=== PATIENT | female | born 1935 | race Caucasian/White ===

== ENCOUNTER 2024-11-25 15:46 | Inpatient (IN) ==
[2024-11-25 16:21] LABS: Basophils # (Auto) 0.03 K/mcL (0.00-0.30); Basophils % (Auto) 0.2 % (0.0-2.0); Eosinophils # (Auto) 0.04 K/mcL (0.00-0.70); Eosinophils % (Auto) 0.3 % (0.0-7.0); Hematocrit 41.8 % (34.1-44.9); Hemoglobin 13.3 g/dL (11.2-15.7); Lymphocytes # (Auto) 1.05 K/mcL (1.50-4.80); Lymphocytes % (Auto) 7.7 % (15.5-49.0); Mean Corpuscular HGB Conc 31.8 g/dL (31.0-36.0); Monocytes # (Auto) 0.68 K/mcL (0.10-0.90); Monocytes % (Auto) 5.0 % (1.0-12.0); Neutrophils % (Auto) 86.5 % (38.0-78.0); Platelet Count 186 K/mcL (140-440); RBC 4.46 M/mcL (3.59-5.38); WBC 13.6 K/mcL (4.5-11.0)
[2024-11-25] MEDS ORDERED: PROPOFOL 200 MG/20 ML VIAL IV ONE (16:39)
[2024-11-25] MEDS ORDERED: ONDANSETRON 4 MG/2 ML VIAL ONE (16:40)
[2024-11-25] MEDS ORDERED: LIDOCAINE 2% PF 5 ML VIAL ONE (16:40)
[2024-11-25] MEDS ORDERED: DEXAMETHASONE 10 MG/ML VIAL ONE (16:40)
[2024-11-25 16:43] LABS: ALT/SGPT 13 U/L (<40); AST/SGOT 22 U/L (<32); Albumin 4.1 gm/dL (3.2-5.2); Albumin/Globulin Ratio 1.6 (1.0-2.3); Alkaline Phosphatase 70 U/L (39-117); Anion Gap 12.0 (8.0-16.0); Bilirubin,Total 0.3 mg/dL (0.1-1.0); Blood Urea Nitrogen 20 mg/dL (8-23); Calcium 9.6 mg/dL (8.6-10.4); Carbon Dioxide 24 mmol/L (22-30); Chloride 101 mmol/L (96-108); Globulin 2.6 gm/dL (2.2-3.7); Glucose 120 mg/dL (70-105); Potassium 3.7 mmol/L (3.3-5.1); Sodium 137 mmol/L (133-145)
[2024-11-25 16:45] LABS: INR 1.0 (0.9-1.1); Prothrombin Time 14.4 sec (11.9-14.5)
[2024-11-25] MEDS ORDERED: TRANEXAMIC ACID 1,000 MG/10 ML VIAL ONE (17:17)
[2024-11-25] MEDS ORDERED: IPRATROPIUM/ALBUTEROL 3 ML AMPUL.NEB NEB PRN (17:58)
[2024-11-25] MEDS ORDERED: LACTATED RINGERS 250 ML IV PRN (17:58)
[2024-11-25] MEDS ORDERED: fentaNYL 100 MCG/2 ML VIAL IV PRN (17:58)
[2024-11-25] MEDS ORDERED: ONDANSETRON 4 MG/2 ML VIAL IV PRN ×2 (17:58→19:52)
[2024-11-25] MEDS ORDERED: NALOXONE HCL 0.4 MG/ML VIAL IV PRN ×2 (17:58→19:52)
[2024-11-25] MEDS ORDERED: diphenhydrAMINE 50 MG/ML VIAL IV PRN (17:58)
[2024-11-25] MEDS ORDERED: MEPERIDINE 25 MG/ML VIAL IV PRN (17:58)
[2024-11-25] MEDS ORDERED: FLEETS ADULT 1 DOSE ENEMA PR PRN (18:27)
[2024-11-25] MEDS ORDERED: MAGNESIUM HYDROXIDE 30 ML ORAL.SUSP PO PRN (18:27)
[2024-11-25] MEDS ORDERED: BENZOCAINE/MENTHOL 1 LOZENGE PO PRN (18:27)
[2024-11-25] MEDS ORDERED: BISACODYL 10 MG SUPP.RECT PR PRN (18:27)
[2024-11-25] MEDS ORDERED: POLYETHYLENE GLYCOL 3350 17 GM PACKET PO PRN (18:27)
[2024-11-25] MEDS: ACETAMINOPHEN 1,000 MG/100 ML BAG IV ONE (18:31)
[2024-11-25] MEDS: METHOCARBAMOL 1,000 MG/10 ML VIAL IV PRN (18:36)
[2024-11-25] MEDS: TRANEXAMIC ACID 1,000 MG/10 ML VIAL IV ONE (19:11)
[2024-11-25] MEDS: LACTATED RINGERS 1,000 ML IV SCH (19:12)
[2024-11-25] MEDS: ONDANSETRON 4 MG/2 ML VIAL IV PRN (19:12)
[2024-11-25] MEDS: ONDANSETRON 4 MG/2 ML VIAL ONE (19:22)
[2024-11-25] MEDS: TRANEXAMIC ACID 1,000 MG/10 ML VIAL ONE (19:39)
[2024-11-25] MEDS: KETOROLAC 15 MG/ML VIAL IV PRN (19:41)
[2024-11-25] MEDS: 0.9 % SODIUM CHLORIDE 1,000 ML IV SCH ×2 (19:43→19:45)
[2024-11-25] MEDS ORDERED: PROCHLORPERAZINE 10 MG/2 ML VIAL IV PRN (19:52)
[2024-11-25] MEDS ORDERED: IBUPROFEN 600 MG TABLET PO PRN (19:52)
[2024-11-25] MEDS: HYDROmorphone 0.5 MG/0.5 ML SYRINGE IV PRN (19:57)
[2024-11-25] MEDS ORDERED: PROMETHAZINE 25 MG SUPP.RECT PR PRN (20:01)
[2024-11-25] MEDS: HYDROmorphone 0.5 MG/0.5 ML SYRINGE ONE (20:05)
[2024-11-25] MEDS: ceFAZolin 2 GM in DEXTROSE 5% IN WATER 50 ML IV SCH (20:11)
[2024-11-25] MEDS ORDERED: LACTATED RINGERS 1,000 ML IV SCH (20:15)
[2024-11-25] MEDS ORDERED: MELATONIN 3 MG TABLET PO PRN (20:17)
[2024-11-25] MEDS: 0.9 % SODIUM CHLORIDE 10 ML SYRINGE IV SCH (20:26)
[2024-11-25] MEDS ORDERED: HEPARIN 5,000 UNIT/ML VIAL SQ SCH (21:00)
[2024-11-25] MEDS: DOCUSATE SODIUM 100 MG CAPSULE PO SCH (21:02)
[2024-11-25] MEDS: SENNOSIDES 1 TABLET PO SCH (21:02)
[2024-11-25] MEDS: ASPIRIN 325 MG ENTERIC COATED TABLET PO SCH (21:02)
[2024-11-25] MEDS ORDERED: 0.9 % SODIUM CHLORIDE 10 ML SYRINGE IV SCH (22:00)
[2024-11-26] MEDS: ACETAMINOPHEN 1,000 MG/100 ML BAG IV PRN (04:16)
[2024-11-26 06:15] LABS: Basophils # (Auto) 0.01 K/mcL (0.00-0.30); Basophils % (Auto) 0.1 % (0.0-2.0); Eosinophils # (Auto) 0 K/mcL (0.00-0.70); Eosinophils % (Auto) 0 % (0.0-7.0); Hematocrit 35.4 % (34.1-44.9); Hemoglobin 11.3 g/dL (11.2-15.7); Lymphocytes # (Auto) 0.74 K/mcL (1.50-4.80); Lymphocytes % (Auto) 6.5 % (15.5-49.0); Mean Corpuscular HGB Conc 31.9 g/dL (31.0-36.0); Monocytes # (Auto) 0.48 K/mcL (0.10-0.90); Monocytes % (Auto) 4.2 % (1.0-12.0); Neutrophils % (Auto) 89.0 % (38.0-78.0); Platelet Count 177 K/mcL (140-440); RBC 3.73 M/mcL (3.59-5.38); WBC 11.4 K/mcL (4.5-11.0)
[2024-11-26 06:34] LABS: ALT/SGPT 13 U/L (<40); AST/SGOT 33 U/L (<32); Albumin 3.7 gm/dL (3.2-5.2); Albumin/Globulin Ratio 1.7 (1.0-2.3); Alkaline Phosphatase 61 U/L (39-117); Anion Gap 10.0 (8.0-16.0); Bilirubin,Total < 0.2 mg/dL (0.1-1.0); Blood Urea Nitrogen 20 mg/dL (8-23); Calcium 8.7 mg/dL (8.6-10.4); Carbon Dioxide 22 mmol/L (22-30); Chloride 103 mmol/L (96-108); Globulin 2.2 gm/dL (2.2-3.7); Glucose 140 mg/dL (70-105); Potassium 4.5 mmol/L (3.3-5.1); Sodium 135 mmol/L (133-145)
[2024-11-26 06:51] LABS: Phosphorous 3.7 mg/dL (2.5-4.5)
[2024-11-26] MEDS: FOLIC ACID 1 MG TABLET PO SCH (08:06)
[2024-11-26] MEDS: LEVOTHYROXINE 88 MCG TABLET PO SCH (08:06)
[2024-11-26] MEDS: CYANOCOBALAMIN (VITAMIN B-12) 500 MCG TABLET PO SCH (08:06)
[2024-11-26] MEDS ORDERED: HEPARIN 5,000 UNIT/ML VIAL SQ SCH ×2 (09:00)
[2024-11-26] MEDS: DONEPEZIL 10 MG TABLET PO SCH (10:18)
[2024-11-26] MEDS: DONEPEZIL 5 MG TABLET PO SCH (10:21)
[2024-11-26] MEDS: 0.9 % SODIUM CHLORIDE 1,000 ML IV SCH (13:54)
[2024-11-26] MEDS: METHOCARBAMOL 1,000 MG/10 ML VIAL IV PRN (23:34)
[2024-11-27 06:10] LABS: Basophils # (Auto) 0.03 K/mcL (0.00-0.30); Basophils % (Auto) 0.3 % (0.0-2.0); Eosinophils # (Auto) 0.16 K/mcL (0.00-0.70); Eosinophils % (Auto) 1.8 % (0.0-7.0); Hematocrit 32.5 % (34.1-44.9); Hemoglobin 10.1 g/dL (11.2-15.7); Lymphocytes # (Auto) 1.51 K/mcL (1.50-4.80); Lymphocytes % (Auto) 17.0 % (15.5-49.0); Mean Corpuscular HGB Conc 31.1 g/dL (31.0-36.0); Monocytes # (Auto) 0.63 K/mcL (0.10-0.90); Monocytes % (Auto) 7.1 % (1.0-12.0); Neutrophils % (Auto) 73.7 % (38.0-78.0); Platelet Count 152 K/mcL (140-440); RBC 3.35 M/mcL (3.59-5.38); WBC 8.9 K/mcL (4.5-11.0)
[2024-11-27 06:39] LABS: ALT/SGPT 9 U/L (<40); AST/SGOT 38 U/L (<32); Albumin 3.6 gm/dL (3.2-5.2); Albumin/Globulin Ratio 1.8 (1.0-2.3); Alkaline Phosphatase 55 U/L (39-117); Anion Gap 10.0 (8.0-16.0); Bilirubin,Total 0.3 mg/dL (0.1-1.0); Blood Urea Nitrogen 15 mg/dL (8-23); Calcium 8.6 mg/dL (8.6-10.4); Carbon Dioxide 22 mmol/L (22-30); Chloride 108 mmol/L (96-108); Globulin 2.0 gm/dL (2.2-3.7); Glucose 97 mg/dL (70-105); Potassium 4.0 mmol/L (3.3-5.1); Sodium 140 mmol/L (133-145)
[2024-11-27] MEDS ORDERED: DONEPEZIL 10 MG TABLET PO SCH (09:00)
[2024-11-27] MEDS ORDERED: DEXTROSE 31 GM ORAL.SUSP PO PRN (10:08)
[2024-11-27] MEDS ORDERED: DEXTROSE 50% 50 ML VIAL IV PRN (10:08)
[2024-11-27] MEDS ORDERED: METHOCARBAMOL 750 MG TABLET PO PRN (11:00)
[2024-11-27] MEDS: INSULIN LISPRO 1 UNIT/0.01 ML UNIT SQ SCH (11:40)
[2024-11-27] MEDS: ACETAMINOPHEN 325 MG TABLET PO PRN (20:26)
[2024-11-28 08:36] LABS: Basophils # (Auto) 0.06 K/mcL (0.00-0.30); Basophils % (Auto) 0.8 % (0.0-2.0); Eosinophils # (Auto) 0.28 K/mcL (0.00-0.70); Eosinophils % (Auto) 3.8 % (0.0-7.0); Hematocrit 32.4 % (34.1-44.9); Hemoglobin 10.2 g/dL (11.2-15.7); Lymphocytes # (Auto) 1.21 K/mcL (1.50-4.80); Lymphocytes % (Auto) 16.2 % (15.5-49.0); Mean Corpuscular HGB Conc 31.5 g/dL (31.0-36.0); Monocytes # (Auto) 0.53 K/mcL (0.10-0.90); Monocytes % (Auto) 7.1 % (1.0-12.0); Neutrophils % (Auto) 71.8 % (38.0-78.0); Platelet Count 162 K/mcL (140-440); RBC 3.39 M/mcL (3.59-5.38); WBC 7.5 K/mcL (4.5-11.0)
[2024-11-28 09:02] LABS: ALT/SGPT 8 U/L (<40); AST/SGOT 38 U/L (<32); Albumin 3.3 gm/dL (3.2-5.2); Albumin/Globulin Ratio 1.3 (1.0-2.3); Alkaline Phosphatase 56 U/L (39-117); Anion Gap 11.0 (8.0-16.0); Bilirubin,Total 0.4 mg/dL (0.1-1.0); Blood Urea Nitrogen 10 mg/dL (8-23); Calcium 8.6 mg/dL (8.6-10.4); Carbon Dioxide 22 mmol/L (22-30); Chloride 106 mmol/L (96-108); Globulin 2.5 gm/dL (2.2-3.7); Glucose 94 mg/dL (70-105); Potassium 3.9 mmol/L (3.3-5.1); Sodium 139 mmol/L (133-145)
== END 2024-11-28 10:11 | DRG 482 ==
LOC: SUATTDRO → ED 15:46 → SSSU 16:40 → MEDSUR 18:55
PROVIDERS: ADMIT Student in an Organized Health Care Education/Training Program; ATTEND Student in an Organized Health Care Education/Training Program